=== PATIENT | male | born 1955 | race Caucasian/White ===

== ENCOUNTER 2016-12-10 08:57 | Observation (INO) ==
[2016-12-10] MEDS ORDERED: ASPIRIN 325 MG TABLET PO STA (09:24)
[2016-12-10] MEDS ORDERED: ASPIRIN 325 MG TABLET ONE (09:30)
[2016-12-10 09:36] LABS: PT Patient Result 10.3 SECS; Partial Thromboplastin Time 28.9 SECS (0-40)
--- NOTE | 2016-12-10 09:37 | Emergency Department Note ---
Prem Sandoval Manpreet, am scribing for, and in the presence of, Ayala Flores DO 09: 27. IMark Debra, DO, personally performed the services described in this documentation, ascribed by Jaswinder Amaro in my presence, and it is both accurate and complete 935 . Arrival - Arrival Chief Complaint: Chest Pain Stated Complaint: tightness in chest like pressure;sent by Dr Vann ED Nursing Triage Note: Chest pain with radiation to left arm onset on Wednesday - pt denies any SOB Mode of Arrival: Ambulatory Limitations: No Limitations Source: Patient - History of Present Illness HPI Narrative: Pt is a 61 y/o male who presents to the ED with sharp, pressurized CP that radiates to his left arm that started 12/07/16. Pt was not doing heavy lifting during the onset and reports of tingling to his left arm. Pt denies SOB, Abd pain, fever, or any other recent illnesses. Pt also reports of smoking cigarettes 1 pack a day. 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 Pt denies any pain currently. No other pains/complaints reported to ED. Onset (ago): day(s) Consistency: constant Severity: moderate Severity scale (1-10): 4 Quality: sharp, other (Pressuerized) Allergies/Adverse Reactions: Allergies Allergy/AdvReac Type Severity Reaction Status Date / Time No Known Allergies Allergy Unverified 12/10/16 09:01 Home Medications: Home Medications Medication Instructions Recorded Confirmed Type Omeprazole [Prilosec] 20 mg PO DAILY 12/10/16 12/10/16 History Review of System - Review of System 12 point system: reviewed and no additional remarkable complaints except as stated - Review of System Constitutional: Absent: chills, diaphoresis, fever Respiratory: Absent: cough, respiratory distress Cardiovascular: Present: chest pain. Absent: dyspnea on exertion Gastrointestinal: Absent: abdominal pain, nausea, vomiting Musculoskeletal: Absent: arm pain, back pain Neurological: Present: paresthesias (Left arm). Absent: headache, weakness Medical,Surgical,& Family Hx - Medical History Gastrointestinal: History of: GERD - Social History Smoking Status: Current every day smoker Frequency of Alcohol Use: Frequently Type of Drug Use: None Exam Vital Signs: Vital Signs Temperature 97.4 F L 12/10/16 09:10 Pulse Rate 94 H 12/10/16 09:10 Respiratory Rate 18 12/10/16 09:11 Blood Pressure 167/78 12/10/16 09:10 O2 Sat by Pulse Oximetry 97 12/10/16 09:02 - General General appearance: alert, in no apparent distress - Head Head exam: Present: atraumatic, normocephalic, normal inspection - Eye Eye exam: Present: normal appearance, PERRL, EOMI - ENT ENT exam: Present: normal exam, normal oropharynx, mucous membranes moist, TM's normal bilaterally - Neck Neck exam: Present: normal inspection, full ROM, trachea midline. Absent: tenderness - Chest Chest inspection: Present: normal inspection, symmetric chest wall rise. Absent : tenderness - Respiratory Respiratory exam: Present: normal lung sounds bilaterally, wheezes (Mild Expiratory wheezes). Absent: accessory muscle use, respiratory distress - Cardiovascular Cardiovascular exam: Present: regular rate, normal rhythm, normal heart sounds - Abdominal Exam Abdominal exam: Present: soft, normal bowel sounds. Absent: distention, diminished bowel sounds - Extremities Exam Extremities exam: Present: normal inspection, full ROM, normal capillary refill. Absent: tenderness - Back Exam Back exam: Present: normal inspection, full ROM. Absent: tenderness - Neurological Exam Neurological exam: Present: alert, oriented X3, CN II-XII intact, reflexes normal - Psychiatric Psychiatric exam: Present: normal affect, normal mood - Skin Skin exam: Present: warm, dry, intact, normal color. Absent: pallor Course Course Narrative: spoke with Dr Adan who will admit pt to their service. pt is stable. and is having no chest pain currently. Results - Labs CBC & BMP: 12/10/16 09:13 12/10/16 09:13 Lab Results: I have reviewed the patients labs Labs: Laboratory Tests 12/10/16 12/10/16 12/10/16 09:13 09:13 09:13 WBC 6.2 RBC 4.32 Hgb 15.3 Hct 40.0 L MCH 35 H MCHC 38.3 H MPV 9.3 L INR 1.0 PT Patient/Control Mix 10.3 Circ Anticoag PTT 28.9 Sodium 128 L Potassium 4.5 Chloride 95 L Carbon Dioxide 22 Anion Gap 15.5 H BUN/Creatinine Ratio 8.00 Calculated Osmolality 254.1 L Total Bilirubin 1.90 H Total Creatine Kinase 71 CK-MB (CK-2) < 1.0 Troponin I < 0.015 Total Protein 7.6 Albumin/Globulin Ratio 1.2 - Diagnostic Findings Procedure: Chest x-ray: report reviewed by me (1. Underlying granuloma changes suspected with reticular nodular densities. 2. No actue cardiopulmonary pathology otherwise noted.) Disposition Clinical Impression: Chest pain Case discussed with: patient Disposition: Still a Patient Condition: Stable Time of Disposition: 10:39
[2016-12-10 09:50] LABS: Alanine Aminotransferase 22 U/L (16-61); Albumin 4.2 G/DL (3.4-5.0); Alkaline Phosphatase 80 U/L (45-117); Aspartate Amino Transferase 21 U/L (0-37); Basophils % 0.5 % (0.0-0.8); Blood Urea Nitrogen 7 MG/DL (7-18); Calcium 8.7 MG/DL (8.5-10.1); Eosinophils # 0.1 10*3/uL (0.0-0.87); Eosinophils % 1.9 % (0.00-10.9); Glucose 94 MG/DL (74-106); Hemoglobin 15.3 GM/DL (14.0-18.0); Immature Granulocytes % 0.5 %; Immature Granulocytes Absolute 0.03 #; Lymphocytes # 1.8 10*3/uL (1.4-4.0); Lymphocytes % 29.6 % (21.2-54.2); Mean Corpuscular HGB Conc 38.3 GM/DL (32-36); Mean Corpuscular Hemoglobin 35 PG (27-34); Mean Corpuscular Volume 92.6 FL (87-102); Mean Platelet Volume 9.3 FL (9.6-12.0); Monocytes # 0.5 10*3/uL (0.11-0.8); Monocytes % 7.4 % (1.7-12.7); Neutrophils # 3.7 10*3/uL (1.4-7.4); Neutrophils % 60.1 % (38.7-73.9); Osmolality,Calculated 254.1 MOS/KG (273-304); Platelet Count 281 T/CUMM (130-400); Potassium 4.5 MMOL/L (3.5-5.1); Red Blood Count 4.32 MC/CUMM (3.8-5.5); Red Cell Distribution Width 11.2 % (9.3-17.3); Sodium 128 MMOL/L (136-145); Total Protein 7.6 G/DL (6.4-8.3); Troponin I Only < 0.015 NG/ML (0.00-0.045); White Blood Count 6.2 T/CUMM (4-12)
--- NOTE | 2016-12-10 09:51 | XRay Report ---
Exam: XR chest 1V portable Date: 12/10/2016 9:24 AM Indication: Chest pain Comparison: None Technical: AP Findings: Mild reticular nodular densities are scattered in the lung page. No obvious consolidating infiltrate or effusion. Mediastinum and bony structures are intact. Minimal peribronchial cuffing and thickening in the right perihilar region. Minimal degenerative changes of the AC joints. No pneumothorax. Impression: 1. Underlying granuloma changes suspected with reticular nodular densities. 2. No acute cardiopulmonary pathology otherwise noted PROCEDURE INTERPRETED AT [facility] DEPARTMENT OF RADIOLOGY Final Report Signed by: Dr. To Eduardo
[2016-12-10] MEDS ORDERED: SODIUM CHLORIDE 0.9% 1,000 ML IV STA (10:42)
[2016-12-10] MEDS ORDERED: ONDANSETRON 4 MG/2 ML VIAL IV PRN (10:53)
[2016-12-10] MEDS ORDERED: MAGNESIUM SULF RIDER 2 GM in PREMIX 1 EACH IV PRN (10:53)
[2016-12-10] MEDS ORDERED: MORPHINE 2 MG/1 ML SYRINGE IV PRN (10:53)
[2016-12-10] MEDS ORDERED: ZALEPLON 5 MG CAPSULE PO PRN (10:53)
[2016-12-10] MEDS ORDERED: MAGNESIUM SULF RIDER 4 GM in PREMIX 1 EACH IV PRN (10:53)
[2016-12-10] MEDS ORDERED: POTASSIUM CHLORIDE RIDER 10 MEQ in PREMIX 1 EACH IV PRN (10:53)
[2016-12-10] MEDS ORDERED: ACETAMINOPHEN 325 MG TABLET PO PRN (10:53)
[2016-12-10] MEDS ORDERED: ENOXAPARIN 40 MG/0.4 ML SYRINGE SUBCUT SCH (11:00)
--- NOTE | 2016-12-10 11:21 | Cardiology History & Physical ---
Assessment and Plan - Time spent with patient Time spent with patient: Greater than 30 minutes (due to assessment, plan, and documentation) Time spent discussing smoking cessation with patient: 3 to 10 minutes (1) Chest pain Status: Acute Assessment and plan: See plan of care listed below. Current Visit: Yes (2) Family history of premature CAD Status: Chronic Assessment and plan: See plan of care listed below. Current Visit: Yes (3) Tobacco abuse Status: Chronic Assessment and plan: See plan of care listed below. Current Visit: Yes (4) Alcohol use Status: Chronic Assessment and plan: See plan of care listed below. 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 Adan Mr. Reynolds is being seen in the emergency department, room #8. Mr. Reynolds is a 61 year old male with no significant cardiac history. Risk factors are significant for: Age, family history of premature CAD, tobaccoism. Patient works at [employer] and smokes approximately 1 pack per day. He tells me that on the days he works he will come home and drinks 6-8 beers per day and on his off days from work he will drink a 12 pack or more per day. He states he would not have any signs of DTs being without a drink. He tells me that his younger brother from a heart attack at age 44. He also reports his mom's sister from a heart attack at age 44. He has not had any other family members with significant coronary artery disease. He presented to the emergency room today after 5 day history of chest pain. He reports he is usually a fairly active individual and does not usually have any difficulties however on Wednesday he started noticing midsternal/epigastric pressure. He tells me that it is not a severe pain just pressure and it almost feels as if he needs to belch. On Wednesday night he also had some abdominal pain and bloating. He has had some associated left arm tightness and tingling. He denies any associated symptoms of diaphoresis, nausea, vomiting, shortness of breath, palpitations, dizziness, lightheadedness, or syncope. It is nonreproducible to movement, palpation, or deep breath. It is not associated with rest or exertion. He can identify no aggravating or alleviating factors. He was given aspirin on arrival and reports he is not currently in any discomfort. Upon arrival, patient was noted to have T-wave inversions inferiorly with normal cardiac biomarkers. Chest x-ray showed no obvious infiltrate or effusion , granuloma changes with reticular nodular densities. His sodium was 128 and he has been started on normal saline IVF. Assessment/Plan: 1. Chest pain - We will admit Mr. Reynolds to cardiology services to rule out VT/ cardiac ischemia. We will continue to cycle cardiac biomarkers and EKGs and monitor. We'll keep him NPO and schedule nuclear stress test and echocardiogram for today. Certainly, his symptoms are suspicious for cardiac etiology, but I believe he may also be having some GI issues as well. 2. Family history of premature CAD - He tells me that his younger brother from a heart attack at age 44. He also reports his mom's sister from a heart attack at age 44. He has not had any other family members with significant coronary artery disease. 3. Tobacco abuse - He smokes approximately 1 PPD and tells me is aware he needs to quit. Greater than 5 minutes was spent discussing the need for tobacco cessation. 4. Alcohol use - He tells me that on the days he works he will come home and drinks 6-8 beers per day and on his off days from work he will drink a 12 pack or more per day. He states he would not have any signs of DTs being without a drink. Will further discuss with Dr. Adan and await additional recommendations. Home Medications Medication Instructions Recorded Confirmed Type Omeprazole [Prilosec] 20 mg PO DAILY 12/10/16 12/10/16 History Allergies Allergy/AdvReac Type Severity Reaction Status Date / Time No Known Allergies Allergy Unverified 12/10/16 09:01 Review of systems: - Constitutional: Present: As per HPI. Absent: anorexia, chills, daytime sleepiness, excessive sweating, fever(s), frequent falls, headache(s), increased appetite, lethargy, malaise, night sweats, stops breathing during sleep, weakness, weight gain, weight loss, fatigue. - EENT Eyes: Present: As per HPI. Absent: blurry vision, diplopia, loss of vision Ears: Present: As per HPI. Absent: decreased hearing, ear discharge, ear pain Nose, mouth and throat: Present: As per HPI. Absent: dysphagia, epistaxis, headache(s), hoarseness, lip swelling, nasal congestion, neck mass, neck pain, sinus pressure, sore throat, throat swelling, tongue swelling, vertigo - Cardiovascular: Present: chest pain at rest, radiating jaw, neck or arm pain, as per HPI. Absent: chest pain with activity, dyspnea, dyspnea on exertion, edema, claudication, diaphoresis, lightheadedness, orthopnea, palpitations, PND - Respiratory: Present: as per HPI. Absent: dyspnea, dyspnea on exertion, cough , hemoptysis, wheezing, snoring, pain on inspiration - Gastrointestinal: Present: abdominal pain, bloating, As per HPI. Absent: change in bowel habits, constipation, diarrhea, heartburn, hematemesis, hematochezia, loose stools, melena, nausea, vomiting - Genitourinary: Present: As per HPI. Absent: difficulty urinating, dysuria, flank pain, hematuria, nocturia, urinary frequency, urinary incontinence - Musculoskeletal: Present: As per HPI. Absent: arthralgias, back pain, joint swelling, limited range of motion, muscle cramps, muscle weakness, myalgias - Neurological: Present: As per HPI. Absent: abnormal gait, abnormal speech, behavioral changes, confusion, convulsions, disequilibrium, dizziness, focal weakness, frequent falls, headache(s), memory loss, numbness, paresthesias, radicular pain, syncope, tremor(s) - Psychiatric: Present: As per HPI. Absent: anxiety, confusion, depression, panic attacks - Endocrine: Present: As per HPI. Absent: cold intolerance, fatigue, heat intolerance, polydipsia, polyphagia - Hematologic/Lymphatic: Present: As per HPI. Absent: easy bleeding, easy bruising, lymphadenopathy Medical,Surgical,& Family Hx - Medical History Cardio: No history of: CHF, CAD, Hypertension, VT Endocrine: No history of: Diabetes Mellitus (IDDM), Diabetes Mellitus (NIDDM), Dyslipidemia Respiratory: No history of: COPD Gastrointestinal: History of: GERD - Social History Smoking Status: Current every day smoker Frequency of Alcohol Use: Frequently (drinks 6-8 beers daily and 12+ daily on his off days) Type of Drug Use: None Marital Status: Single Lives With:: Alone Functional capacity: independent ambulation Cardiology Physical Exam - Constitutional Vitals: Vital Signs Temp Pulse Resp BP Pulse Ox 97.4 F L 94 H 18 167/78 97 12/10/16 09:10 12/10/16 09:10 12/10/16 09:11 12/10/16 09:10 12/10/16 09:02 Intake and Output 12/09/16 12/10/16 12/10/16 22:59 06:59 14:59 Other: Weight 160 lb Patient Weight 12/11/16 06:59 Weight 160 lb Exam: General appearance: Pleasant and cooperative. Normal weight, no acute distress. - Head Head exam: Present: normal inspection, normocephalic, atraumatic. Absent: hematoma, laceration - Eye Eye exam: Present: EOMI. Absent: conjunctival injection, nystagmus, periorbital swelling, scleral icterus, laceration to eyelids Pupils: Present: PERRL. Absent: constricted, dilated, fixed, irregular, unequal - ENT ENT exam: Present: normal exam, normal external ear exam - Neck Neck exam: Present: normal inspection. Absent: lymphadenopathy, meningismus, tenderness, thyromegaly - Respiratory Respiratory exam: Present: clear to auscultation bilaterally. Absent: accessory muscle use, chest wall tenderness - Cardiovascular Cardiovascular exam: Present: regular rate and rhythm. Absent: carotid bruit, gallop, JVD, rubs, murmur - GI/Abdominal GI/Abdominal exam: Present: normal bowel sounds, soft. Absent: distended, firm , guarding, hernia, mass, tenderness, rebound. - Extremities Exam Extremities exam: Present: normal inspection, normal capillary refill. Upper extremity pulses 2+. Lower extremity pulses 2+. Absent: calf tenderness, edema -Musculoskeletal Exam Musculoskeletal: Present: No Fluid Collection, No Pain, Normal Range of Motion - Back Exam Back exam: Present: normal inspection. Absent: muscle spasm, vertebral tenderness - Neurological Exam Neurological exam: Present: alert, oriented X3, grossly intact without resting or essential tremor - Psychiatric Psychiatric exam: Present: normal affect, normal mood - Skin Skin exam: Present: normal color, warm, dry, intact. Absent: cyanosis, diaphoretic, rash, urticaria Result/EKG - Labs CBC & BMP: 12/10/16 09:13 12/10/16 09:13 Lab Results: I have reviewed the past 24 hour labs Labs: Laboratory Results - last 24 hr 12/10/16 12/10/16 12/10/16 09:13 09:13 09:13 WBC 6.2 RBC 4.32 Hgb 15.3 Hct 40.0 L MCV 92.6 MCH 35 H MCHC 38.3 H RDW 11.2 Plt Count 281 MPV 9.3 L Neut % (Auto) 60.1 Lymph % (Auto) 29.6 [place] % (Auto) 7.4 Eos % (Auto) 1.9 Baso % (Auto) 0.5 Neut # (Auto) 3.7 Lymph # (Auto) 1.8 [place] # (Auto) 0.5 Eos # (Auto) 0.1 Baso # (Auto) 0.0 Immature Gran % 0.5 Nucleated RBC % 0.0 Immature Gran # 0.03 Nucleated RBCs # 0.00 INR 1.0 PT Patient/Control Mix 10.3 Circ Anticoag PTT 28.9 Sodium 128 L Potassium 4.5 Chloride 95 L Carbon Dioxide 22 Anion Gap 15.5 H BUN 7 Creatinine 0.80 GFR Calculation 107 BUN/Creatinine Ratio 8.00 Glucose 94 Calculated Osmolality 254.1 L Calcium 8.7 Total Bilirubin 1.90 H AST 21 ALT 22 Alkaline Phosphatase 80 Total Creatine Kinase 71 CK-MB (CK-2) < 1.0 Troponin I < 0.015 Total Protein 7.6 Albumin 4.2 Globulin 3.4 Albumin/Globulin Ratio 1.2 - EKG EKG results: interpreted by me, sinus rhythm (with T wave abnormality)
[2016-12-10] MEDS ORDERED: NICOTINE 21 MG/24 HR PATCH TRANSDERM PRN (11:25)
--- NOTE | 2016-12-10 13:17 | Event Note ---
Mr. Reynolds underwent nuclear stress testing without incident. He achieved THR in stage II of Dewayne protocol. Admission EKG showed T-wave inversions inferiorly ; however, this had resolved at the beginning of the test. He was noted to have upsloping ST depression in the inferolateral leads, up to 4.1 mm depression in V5, improved with rest. Patient had mild dyspnea on exertion but no chest pain, heaviness, or tightness. No dizziness, lightheadedness, or syncope. Blood pressure responded appropriately. Patient now to nuclear medicine for final scan. Dr. Adan to read, interpret, and advise.
--- NOTE | 2016-12-10 13:38 | ECHO Report ---
Getachew Reynolds Exam Date: 12/10/2016 12:21 Referring Physician: Technologist: Kitty Christiansen Age: 61 Ht (in): 71 Wt (lb): 160 Gender: M Exam Location: [facility] Echo Indications: chest pain, Hx. CHF, Hx. CAD, Hx. HTN, smoker BP: 167 / 78 HR: 94 Rhythm: Sinus Technical Quality: IMPRESSIONS Normal left ventricular cavity size. Mild concentric left ventricular hypertrophy. Normal systolic function. Left ventricular ejection fraction is estimated at 60 %. Normal diastolic function. No significant valvular abnormalities. MEASUREMENTS (Male / Female) Normal Values 2D ECHO LV Diastolic Diameter PLAX 3.1 cm 4.2 - 5.9 / 3.9 - 5.3 cm LV Systolic Diameter PLAX 1.6 cm LV Fractional Shortening PLAX 48.0 % IVS Diastolic Thickness 1.3 cm 0.6 - 1.0 / 0.6 - 0.9 cm LVPW Diastolic Thickness 1.3 cm 0.6 - 1.0 / 0.6 - 0.9 cm RV Internal Dim ED PLAX 2.6 cm Aortic Root Diameter 2.4 cm LA Systolic Diameter LX 3.5 cm 3.0 - 4.0 / 2.7 - 3.8 cm DOPPLER TR Peak Velocity 212.0 cm/s TR Peak Gradient 18.0 mmHg FINDINGS Left Ventricle Normal left ventricular cavity size. Mild concentric left ventricular hypertrophy. Normal systolic function. Left ventricular ejection fraction is estimated at 60 %. Normal diastolic function. Right Ventricle Normal right ventricular size. Right Atrium Normal right atrial size. Left Atrium Normal left atrial size. Mitral Valve Structurally normal mitral valve, with trace regurgitation. Aortic Valve Structurally normal aortic valve, without stenosis or insufficiency. Tricuspid Valve Morphologically normal tricuspid valve. Trace tricuspid valve regurgitation. Estimated pulmonary artery systolic pressure 18 mmHg plus RA pressure. Pulmonic Valve Morphologically normal pulmonic valve. Pericardium No pericardial effusion. Aorta Normal size aortic root and proximal ascending aorta. Yfn Adan (Electronically Signed) Final Date: 10 December 2016 13:37
--- NOTE | 2016-12-10 15:04 | EKG Report ---
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
--- NOTE | 2016-12-10 15:13 | Discharge Summary ---
Hospital Course - Hospital Course Hospital Course: [employer]: (NEW) DR. ADAN PCP: DR. ODOM Mr. Reynolds, 61WM, without a significant cardiac history but risk factors significant for: family history of premature CAD, tobaccoism. Presented to the ED of [facility] December 10, 2016 with complaints of chest pain in the midsternal/ epigastric area, abdominal fullness and belching. He was found to be hypertensive throughout the hospitalization with his systolic blood pressure averaging 140s-160s. Chest x-ray revealed no obvious infiltrate or effusion, granuloma changes with reticular nodular densities. Cardiac biomarkers were negative. Upon arrival, EKG revealed T-wave inversions inferiorly however, repeat EKGs and stress testing did not identify inverted T waves. It is thought that this was simply a lead issue. Patient underwent Cardiolite stress testing December 10, 2016 achieving stage II of the Dewayne protocol. Dr. Adan interpreted nuclear scan and found the patient to have no evidence of reversible ischemia (favorable results). Echo revealed EF 55% without significant valvular abnormality. Patient is anxious for release home, he is being released in stable condition. Total bilirubin was elevated at 1.9. He wishes to have this worked up outpatient with Dr. Vann we will arrange for follow-up with Dr. Odom next week. Patient insists his systolic blood pressure usually runs 110s however, through the hospitalization it has been elevated (140s - 160s). He is being given Rx for Toprol-XL 25 mg orally daily, ECASA 81mg orally daily. Also, to resume Prilosec 20mg orally daily. The merits of smoking cessation and alcohol cessation was discussed for greater than 5 minutes. Patient will have fasting lipid profile with Dr. Vann next week. He is being given a 6 weeks follow-up with Dr. Adan. At that visit the following will be obtained: EKG - Time spent with patient Time with patient DS: Greater than 30 minutes Time spent discussing smoking cessation with patient: 3 to 10 minutes Diagnosis - Discharge Diagnosis (1) Hypertension Status: Acute (2) Chest pain Status: Resolved (3) Family history of premature CAD Status: Chronic (4) Tobacco abuse Status: Chronic (5) Alcohol use Status: Chronic (6) Total bilirubin, elevated Status: Acute Specialty Discharge - Follow Up or Referrals Follow up with: Yfn Adan MD [Physician] - (6 weeks. EKG) Giovanny Odom MD [Primary Care Provider] - 1 Week (Labs at that visit: Fasting lipid profile, BMP, Mg, and LFTs) Discharge Plan - Discharge Data Disposition: Disch To Home/Self Care Condition at Discharge: Stable Discharge Diet: heart healthy Activity: resume usual activities as tolerated Hygiene: no restrictions Weight Bearing at Discharge: full weight bearing Driving: no restrictions Contact your physician if you experience:: fever over 101, Difficulty voiding, Redness or swelling, Nausea/Vomiting, Shortness of breath, Bleeding, pain uncontrolled by pain medications - Discharge Medications New Metoprolol Succinate Xl [Toprol Xl] 25 mg PO DAILY #30 tablet Aspirin EC Tab 81 mg PO DAILY #30 tablet Continue Omeprazole [Prilosec] 20 mg PO DAILY - Follow Up or Referral Follow Up: Yfn Adan MD [Physician] - (6 weeks. EKG) Giovanny Odom MD [Primary Care Provider] - 1 Week (Labs at that visit: Fasting lipid profile, BMP, Mg, and LFTs) - Forms/Instructions Instructions: Coronary Artery Disease (GEN), How to Stop Smoking (GEN), Heart Healthy Diet (GEN), Cigarette Smoking and Your Health, Change Control Analyst (GEN) Exam - Constitutional Vitals: Period Temp Pulse Resp BP Sys/Hale Pulse Ox Last 24 Hr 97.3 F-97.4 F 80-94 17-20 145-167/78-80 97-100 Exam: General: [Appears well with no apparent distress.] [Pleasant and cooperative. ] [Appears comfortable.] HEENT: [PERRL, normocephalic, atraumatic. Mucous membranes moist. No jaundice noted. Conjunctiva moist and clear, sclerae anicteric] Neck: No JVD/HJR, no thyromegaly or lymphadenopathy noted. No carotid bruit appreciated Cardiac: [Regular rate and rhythm.] [No murmur rub or gallop.] Lungs: [Clear to auscultation without accessory muscle use to assist the respiratory pattern.] Not requiring oxygen Abdomen: Soft, bowel sounds normoactive. Nontender and nondistended. No abdominal bruit or thrill noted. No masses noted. Musculoskeletal: No fluid collection. Decreased range of motion is noted. Extremities: No clubbing, cyanosis noted. [ No edema noted.] Upper extremity pulses 2+. Lower extremity pulses 2+. Capillary refill less than 3 seconds. Skin: No unusual lesions or rashes. No skin breakdown appreciated. Neuro: Awake, alert and oriented 3. Moves all extremities well without hemiparesis or paralysis. No essential tremor is appreciated. Discharge Results Procedures and tests throughout hospitalization: Pending Orders 12/10/16 10:55 Urinalysis Routine 12/10/16 11:14 NM monet perf SPECT rest or str Stat 12/11/16 04:00 Comp Blood Count Auto Diff IN AM Comprehensive Metabolic Panel IN AM Lipid Panel IN AM Magnesium IN AM Labs on day of discharge: Labs from last 24 hours 12/10/16 12/10/16 12/10/16 09:13 09:13 09:13 WBC 6.2 RBC 4.32 Hgb 15.3 Hct 40.0 L MCV 92.6 MCH 35 H MCHC 38.3 H RDW 11.2 Plt Count 281 MPV 9.3 L Neut % (Auto) 60.1 Lymph % (Auto) 29.6 Haines % (Auto) 7.4 Eos % (Auto) 1.9 Baso % (Auto) 0.5 Neut # (Auto) 3.7 Lymph # (Auto) 1.8 Haines # (Auto) 0.5 Eos # (Auto) 0.1 Baso # (Auto) 0.0 Immature Gran % 0.5 Nucleated RBC % 0.0 Immature Gran # 0.03 Nucleated RBCs # 0.00 INR 1.0 PT Patient/Control Mix 10.3 Circ Anticoag PTT 28.9 Sodium 128 L Potassium 4.5 Chloride 95 L Carbon Dioxide 22 Anion Gap 15.5 H BUN 7 Creatinine 0.80 GFR Calculation 107 BUN/Creatinine Ratio 8.00 Glucose 94 Calculated Osmolality 254.1 L Calcium 8.7 Total Bilirubin 1.90 H AST 21 ALT 22 Alkaline Phosphatase 80 Total Creatine Kinase 71 CK-MB (CK-2) < 1.0 Troponin I < 0.015 Total Protein 7.6 Albumin 4.2 Globulin 3.4 Albumin/Globulin Ratio 1.2 - Imaging and Cardiology Cardiology Procedure: report reviewed by me Procedure: Chest x-ray: report reviewed by me DS: Provider Date of admission: 12/10/16 10:53 Primary care physician: Giovanny Odom MD Attending physician on admission: Yfn Adan MD Consults: 12/10/16 10:53 Consult to Cardiac Rehabilitation [CONS] Routine Reason for Cardiac Rehabilitation: Risk Factor Modification Discharging clinician: uRth Noel NP Expected date of discharge: 12/10/16
[2016-12-10] MEDS ORDERED: METOPROLOL SUCCINATE XL 25 MG TABLET PO SCH (15:30)
--- NOTE | 2016-12-10 15:30 | EKG Report ---
Stationary ECG Study [facility] Test Date: 12/10/2016 3:14:39 PM Pat Name: MARCELLO ROCA Department: Room: 281 Gender: M [employer] Director: : 1955 Requested by: Ruth Hall Order Number: [id number] Reading MD: ART CÁRDENAS Intervals [place] Rate: 85 P: 70 [place]: 153 QRS: 69 QRSD: 88 T: 66 QT: 341 QTc: 384 Interpretive Statements SINUS RHYTHM WITH OCCASIONAL VENTRICULAR PREMATURE COMPLEXES POSSIBLE RIGHT VENTRICULAR CONDUCTION DELAY INTERPRETATION BASED ON A DEFAULT AGE OF 40 YEARS Electronically Signed On 12-10-16 18:55:29 CDT by ART CÁRDENAS [email or web address]
--- NOTE | 2016-12-10 16:15 | Nuclear Medicine Report ---
EXERCISE STRESS TEST Test is interpreted by Dr. Yfn Adan. INDICATION: Chest pain. PROCEDURE: At rest, 10 mCi of 99-Technetium labeled Sestamibi was injected and rest images were obtained. The patient exercised according to the Tanvi treadmill stress protocol. At peak stress, 30 mCi of 99-Technetium labeled Sestamibi was injected and stress images were obtained. FINDINGS: At rest, sinus rhythm, 74 beats per minute, blood pressure was 132/ 82 mmHg. Normal repolarization. The patient then exercised for 7 minutes and 13 seconds, achieving a peak heart rate of 160 beats per minute, 100% of the maximum, age predicted heart rate. The peak exercise was 6.6 METS. Blood pressure ruma to 202/102 mmHg. There were no significant ST-T changes, and there was no chest pain, however, the patient did allow mildly sensitive. The test was stopped due to achieving the peak predicted heart rate. A few PVCs were noted during stress. Rest and poststress gated and perfusion images were reviewed. There is a moderate amount of motion artifacts in both sets of images. The left ventricle is normal in size, the end-diastolic volume is 92 cc , the end-systolic volume is 39 cc, the calculated left ventricular ejection fraction is 58%. Normal systolic thickening in all segments. Perfusion images show moderate size area in the mid/apical inferior region of moderately decreased activity at rest, which improves poststress, suggestive of imaging artifacts. There are no corresponding wall motion abnormalities. CONCLUSION: 1. CLINICALLY AND ELECTRICALLY NEGATIVE MAXIMUM STRESS TANVI TREADMILL TEST. JOHNSON TREADMILL SCORE IS 7. 2. NORMAL LEFT VENTRICULAR SIZE, NORMAL SYSTOLIC FUNCTION, WITHOUT EVIDENCE OF OLD MYOCARDIAL DISEASE OR ISCHEMIA. 3. THIS IS A LOW RISK TEST. 4. HYPERTENSION Procedure performed and interpreted at [facility] Department of Radiology. [facility]
[2016-12-10 16:48] VITALS: BP 142/83
[2016-12-11] MEDS ORDERED: PANTOPRAZOLE 40 MG TABLET PO SCH (09:00)
== END 2016-12-10 17:54 | disposition home or self-care (01) ==
LOC: N.ED 08:57 → N.EDINP 08:57 → N.TELEN 13:07
PROVIDERS: ADMIT Internal Medicine Clinical Cardiac Electrophysiology; ATTEND Internal Medicine Clinical Cardiac Electrophysiology

== ENCOUNTER 2019-07-02 09:04 | Observation (INO) ==
[2019-07-02] MEDS ORDERED: ASPIRIN 325 MG TABLET PO STA (09:33)
[2019-07-02 09:41] LABS: Basophils % 0.5 % (0.0-0.8); Eosinophils % 0.7 % (0.00-10.9); Hematocrit 41.8 VOL% (42.0-52.0); Immature Granulocytes % 0.2 %; Immature Granulocytes Absolute 0.01 #; Lymphocytes # 1.6 10*3/uL (1.4-4.0); Lymphocytes % 27.4 % (21.2-54.2); Mean Corpuscular HGB Conc 35.9 GM/DL (32-36); Mean Corpuscular Volume 96.3 FL (87-102); Mean Platelet Volume 9.2 FL (9.6-12.0); Monocytes % 8.9 % (1.7-12.7); Neutrophils % 62.3 % (38.7-73.9); Platelet Count 278 T/CUMM (130-400); Red Blood Count 4.34 MC/CUMM (3.8-5.5); Red Cell Distribution Width 11.1 % (9.3-17.3); White Blood Count 5.9 T/CUMM (4-12)
[2019-07-02 09:48] LABS: INR 0.9; PT Patient Result 10.3 SECS (9.6-12.2)
[2019-07-02 09:59] LABS: Osmolality,Calculated 262.5 MOS/KG (273-304)
[2019-07-02] MEDS ORDERED: ONDANSETRON 4 MG/2 ML VIAL IV PRN (10:23)
[2019-07-02] MEDS ORDERED: MORPHINE 4 MG/1 ML VIAL IV PRN (10:23)
[2019-07-02] MEDS ORDERED: ACETAMINOPHEN 325 MG TABLET PO PRN (10:23)
[2019-07-02] MEDS ORDERED: PROMETHAZINE 25 MG/1 ML VIAL IM PRN (10:23)
[2019-07-02] MEDS ORDERED: ALUM/MAG/SIMETH/LIDO VISC 1:1 30 ML BOTTLE PO STA (10:27)
[2019-07-02] MEDS ORDERED: METOPROLOL SUCCINATE XL 25 MG TABLET PO SCH (10:30)
[2019-07-02 10:54] LABS: Thyroid Stimulating Hormone 1.25 uIU/ml (0.358-3.74)
[2019-07-02] MEDS: ASPIRIN EC 81 MG TABLET PO SCH (11:09)
[2019-07-02] MEDS: SODIUM CHLORIDE 0.9% 1,000 ML IV SCH ×2 (11:17→21:25)
[2019-07-02] MEDS: PANTOPRAZOLE 40 MG TABLET PO SCH ×2 (11:17→20:33)
[2019-07-02] MEDS: chlordiazePOXIDE 10 MG CAPSULE PO SCH ×4 (12:25→20:33)
[2019-07-02] MEDS: MULTIVITAMIN (CENTRUM) TABLET PO SCH (12:26)
[2019-07-02] MEDS: MAGNESIUM OXIDE 400 MG TABLET PO SCH (12:26)
[2019-07-02] MEDS: NITROGLYCERIN 2% OINT 1 INCH/GM PACK TOP SCH ×3 (12:26→17:51)
[2019-07-02] MEDS: SUCRALFATE 1 GM/10 ML UDCUP PO SCH ×3 (12:28→20:33)
[2019-07-02] MEDS ORDERED: chlordiazePOXIDE 10 MG CAPSULE PO SCH (15:00)
[2019-07-02 17:00] LABS: Apearance,Urine CLEAR (Clear); Bilirubin,Urine Negative (Negative); Blood, Urine Negative (Negative); Glucose,Urine (UA) Negative (Negative); Hyaline Casts,Urine 3 /LPF (0-3); Ketones,Urine Negative (Negative); Mucus,Urine Occasional /LPF (Occasional); Nitrite,Urine Negative (Negative); Protein,Urine Negative; RBC,Urine 1 /HPF (0-4); Squamous Epithelial Cell,Urine Occasional /HPF (0-10); Urine Color Yellow (Yellow); Urine Specific Gravity 1.019 (1.001-1.035); WBC,Urine 1 /HPF (0-6)
[2019-07-02 19:04] LABS: Barbiturates Screen,Urine Negative (Negative); Benzodiazepines Screen,Urine Negative (Negative); Cannabinoid Screen,Urine Negative (Negative); Opiate Screen,Urine Negative (Negative); Phencyclidine Screen,Urine Negative (Negative)
[2019-07-02] MEDS: METOPROLOL SUCCINATE XL 25 MG TABLET PO SCH (20:34)
[2019-07-02] MEDS ORDERED: ENOXAPARIN 40 MG/0.4 ML SYRINGE SUBCUT SCH (21:00)
[2019-07-03] MEDS: NITROGLYCERIN 2% OINT 1 INCH/GM PACK TOP SCH ×2 (00:15→06:38)
[2019-07-03 05:42] LABS: Basophils % 0.7 % (0.0-0.8); Eosinophils # 0.1 10*3/uL (0.0-0.87); Hemoglobin 12.9 GM/DL (14.0-18.0); Immature Granulocytes % 0.4 %; Immature Granulocytes Absolute 0.02 #; Lymphocytes # 1.5 10*3/uL (1.4-4.0); Lymphocytes % 33.3 % (21.2-54.2); Mean Corpuscular HGB Conc 35.8 GM/DL (32-36); Mean Corpuscular Volume 98.9 FL (87-102); Mean Platelet Volume 9.5 FL (9.6-12.0); Monocytes % 10.2 % (1.7-12.7); Neutrophils % 53.4 % (38.7-73.9); Platelet Count 227 T/CUMM (130-400); Red Blood Count 3.64 MC/CUMM (3.8-5.5); Red Cell Distribution Width 11.2 % (9.3-17.3); White Blood Count 4.6 T/CUMM (4-12)
[2019-07-03 06:07] LABS: Calcium 8.3 MG/DL (8.5-10.1); Risk Ratio 2.75; VLDL CHOLESTEROL 33.4 MG/DL
[2019-07-03] MEDS: SODIUM CHLORIDE 0.9% 1,000 ML IV SCH ×2 (07:27→09:38)
[2019-07-03 09:01] VITALS: BP 135/82
[2019-07-03] MEDS: MAGNESIUM OXIDE 400 MG TABLET PO SCH (09:13)
[2019-07-03] MEDS: ASPIRIN EC 81 MG TABLET PO SCH (09:13)
[2019-07-03] MEDS: METOPROLOL SUCCINATE XL 25 MG TABLET PO SCH (09:13)
[2019-07-03] MEDS: chlordiazePOXIDE 10 MG CAPSULE PO SCH (09:13)
[2019-07-03] MEDS: SUCRALFATE 1 GM/10 ML UDCUP PO SCH (09:13)
[2019-07-03] MEDS: MULTIVITAMIN (CENTRUM) TABLET PO SCH (09:14)
[2019-07-03] MEDS: PANTOPRAZOLE 40 MG TABLET PO SCH (09:14)
== END 2019-07-03 11:14 | disposition home or self-care (01) ==
LOC: N.ED 09:04 → N.EDINP 09:04 → SUATTDRO 10:23 → N.TELES 10:57
PROVIDERS: ADMIT Internal Medicine; ATTEND Internal Medicine